=== PATIENT | female | born 1975 | race Caucasian/White ===

== ENCOUNTER 2017-03-06 11:43 | Day surgery (SDC) | payer BC ==
[~2017-03-06] VITALS: Ht 170.2 cm; Wt 68.5 kg
[~2017-03-06 11:43] MED LIST: BUPIVACAINE/PF 0.5% ONE; BUPIVACAINE/PF-EPI 0.25% 1:200K ONE; BUPR100T6 PO; CYCL-259 PO; FLUO20CA8 PO; GABA300C10 PO; HYDR10TA4 PO; LIDOCAINE 1%-EPI 1:100K, 50ML ONE; MIRT15TA4 PO; OXYC10TA6 PO; TRAM50TA2 PO; TRAZ50TA18 PO
[2017-03-06 12:17] VITALS: BP 107/71
[2017-03-06] MEDS ORDERED: LACTATED RINGERS 1,000 ML IV SCH (12:20)
[2017-03-06 12:30] LABS: HCG UR OBC PASS
[2017-03-06] MEDS ORDERED: MIDAZOLAM 1 MG/ML, 2ML ONE (14:11)
[2017-03-06] MEDS ORDERED: FENTANYL PF 250 MCG/5ML ONE (14:11)
[2017-03-06] MEDS ORDERED: hydrOXyzine 10MG TABLET PO SCH (14:30)
[2017-03-06] MEDS ORDERED: ONDANSETRON 2MG/ML, 2ML ONE (14:38)
[2017-03-06] MEDS ORDERED: KETOROLAC 30 MG/1 ML ONE (14:38)
[2017-03-06] MEDS ORDERED: PROPOFOL 10 MG/ML, 20ML ONE (14:38)
[2017-03-06] MEDS ORDERED: CEFAZOLIN 1,000 MG ONE (14:38)
[2017-03-06] MEDS ORDERED: DEXAMETHASONE 4 MG/ML, 5ML ONE (14:38)
[2017-03-06] MEDS ORDERED: SUCCINYLCHOLINE 20 MG/ML, 10ML ONE (14:38)
[2017-03-06] MEDS ORDERED: HYDROmorphone 1 MG/ML, 1ML ONE (14:55)
[2017-03-06] MEDS ORDERED: KETAMINE 10 MG/ML, 20ML ONE (14:55)
[2017-03-06] MEDS ORDERED: PROMETHAZINE 25 MG/ML, 1ML IV PRN (15:30)
[2017-03-06] MEDS ORDERED: ONDANSETRON 2MG/ML, 2ML IVPush PRN (15:30)
[2017-03-06] MEDS ORDERED: hydrALAzine 20 MG/ML, 1ML IV PRN (15:30)
[2017-03-06] MEDS ORDERED: ALBUTEROL/IPRATROPIUM 2.5MG/0.5MG, 3 ML NPPB PRN (15:30)
[2017-03-06] MEDS ORDERED: LABETALOL 5MG/ML, 20ML IV PRN (15:30)
[2017-03-06] MEDS ORDERED: MEPERIDINE/PF 25MG/0.5ML IVPush PRN (15:30)
[2017-03-06] MEDS ORDERED: ACETAMINOPHEN 325 MG TABLET PO PRN (15:30)
[2017-03-06] MEDS ORDERED: OXYcodone 5 MG/5 ML ORAL.SOL UDC PO PRN (15:30)
[2017-03-06] MEDS ORDERED: MIDAZOLAM 1 MG/ML, 2ML IV PRN (15:30)
[2017-03-06] MEDS ORDERED: FENTANYL PF 100 MCG/2ML ONE (15:51)
[2017-03-06] MEDS ORDERED: ACETAMINOPHEN 650 MG/20.3 ML UDC ONE (15:51)
[2017-03-06] MEDS ORDERED: OXYcodone 5 MG/5 ML ORAL.SOL UDC ONE (15:52)
[2017-03-06] MEDS: FENTANYL PF 100 MCG/2ML IV PRN ×2 (15:55→16:00)
[2017-03-06] MEDS ORDERED: HYDROmorphone 2 MG/ML, 1ML ONE (16:09)
[2017-03-06] MEDS: HYDROmorphone 1 MG/ML, 1ML IV PRN ×4 (16:10→16:30)
[2017-03-06] MEDS ORDERED: OXYcodone IR 5MG TABLET PO PRN (17:30)
[2017-03-06] MEDS ORDERED: CYCLOBENZAPRINE 10 MG TABLET PO SCH (21:00)
[2017-03-06] MEDS ORDERED: GABAPENTIN 300 MG CAPSULE PO SCH (21:00)
[2017-03-06] MEDS ORDERED: FLUOXETINE 20 MG CAPSULE PO SCH (21:00)
[2017-03-06] MEDS ORDERED: MIRTAZAPINE 15 MG TABLET PO SCH (21:00)
== END 2017-03-06 17:44 | disposition home or self-care (01) ==
LOC: OUT 11:43
PROVIDERS: ATTEND Orthopaedic Surgery
DX: M21.861 Other specified acquired deformities of right lower leg (principal); M22.41 Chondromalacia patellae, right knee; Z87.891 Personal history of nicotine dependence; Z79.899 Other long term (current) drug therapy
CPT/HCPCS: 29867; 81003; 81025; 87086; C1762; J0330; J0690; J1100; J1170; J1885; J2250; J2405; J2704; J3010; J3490; J7120